=== PATIENT | female | born 1990 | race Two or more races ===

== ENCOUNTER 2022-11-10 04:51 | Emergency (ER) | payer MEDICAID ==
[~2022-11-10] VITALS: Ht 177.8 cm; Wt 98.0 kg
[2022-11-10 04:53] VITALS: BP 150/90; O2SAT 100
[2022-11-10] MEDS ORDERED: KETOROLAC 30MG/ML VIAL IV STA (05:40)
[2022-11-10] MEDS ORDERED: FLUTICASONE PROPIONATE 50MCG/SPRAY BOTTLE BOTHNSTRLS STA (05:41)
[2022-11-10] MEDS ORDERED: SODIUM CHLORIDE 0.9% 1,000 ML IV ONE (05:45)
[2022-11-10] MEDS ORDERED: METOCLOPRAMIDE HCL 10MG/2ML VIAL IV ONE (05:45)
[2022-11-10 06:01] LABS: BASOPHILS % 0.1 % (0.0-2.0); EOSINOPHILS % 3.1 % (0.0-5.0); HEMATOCRIT. 39.1 % (36.0-48.0); HEMOGLOBIN. 12.6 g/dL (12.0-16.0); LYMPHOCYTES % 26.7 % (20.0-50.0); MEAN CORPUSCULAR HEMOGLOBIN 22.6 pg (28.0-32.0); MEAN CORPUSCULAR VOLUME 70.2 fL (81.0-99.0); MEAN PLATELET VOLUME 8.2 fl (7.4-10.4); MONOCYTES % 8.3 % (2.0-8.0); NEUTROPHILS % 61.8 % (40.0-76.0); PLATELET 229 x1000/uL (130-400); RED BLOOD CELL COUNT 5.57 mill/uL (4.2-5.4); RED CELL DISTRIBUTION WIDTH 15.5 % (11.6-14.6)
[2022-11-10 06:10] LABS: CHLORIDE 110 mEq/L (98-107)
[2022-11-10 06:20] LABS: CLARITY URINE CLEAR (CLEAR); COLOR URINE YELLOW (YELLOW); KETONES URINE NEGATIVE (NEGATIVE); LEUKOCYTE ESTERASE URINE NEGATIVE (NEGATIVE); NITRITE URINE NEGATIVE (NEGATIVE); OCCULT BLOOD URINE TRACE (NEGATIVE); PH URINE 5.5 (4.5-8.0); PROTEIN URINE TRACE (NEGATIVE)
[2022-11-10 06:28] LABS: HCG SCREEN NEGATIVE
[2022-11-10] MEDS ORDERED: TOPUD PO (07:04)
[2022-11-10 07:15] VITALS: PULSE 90; RESP 16; TEMP 98.5
== END 2022-11-10 07:17 | disposition home or self-care (01) ==
LOC: ER 05:03
DX: H66.90 Otitis media, unspecified, unspecified ear (principal); J45.909 Unspecified asthma, uncomplicated
CPT/HCPCS: 36415; 70450; 71045; 80053; 81003; 81025; 84484; 84703; 85025; 96361; 96374; 96375; 99285; J1885; J2765; J7030; Z7610